=== PATIENT | male | born 1980 | race African-American/Black ===

== ENCOUNTER 2020-03-10 08:32 | Emergency (ER) | payer SELFPAY ==
[~2020-03-10] VITALS: Ht 182.9 cm; Wt 91.9 kg
[2020-03-10 08:57] VITALS: BP 154/71
[2020-03-10] MEDS ORDERED: FAMOTIDINE 20 MG TABLET. PO ONE (09:45)
[2020-03-10] MEDS ORDERED: DEXAMETHASONE SOD PHOS 20 MG/5 ML VIAL. IM ONE (09:45)
[2020-03-10] MEDS ORDERED: diphenhydrAMINE HCL 25 MG CAPSULE PO ONE (09:45)
[2020-03-10] MEDS ORDERED: PRED-220 PO (10:01)
[2020-03-10] MEDS ORDERED: DIPH25CA58 PO (10:01)
[2020-03-10] MEDS ORDERED: FAMO-63 PO (10:01)
--- NOTE | 2020-03-10 10:02 | PHYS DOC ---
Past Medical History Past Medical History: No Pertinent History Past Surgical History: No Surgical History Smoking Status: Current Every Day Smoker Alcohol Use: Occasionally General Adult EDM: Chief Complaint: SKIN RASH/ABSCESS HPI: HPI: Patient is a 39-year-old previously healthy male who presents to the emergency room complaining of diffuse hives. 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 Is been ongoing for the last week but got progressively worse last night. She denies any shortness of breath, nausea, vomiting, swelling. He has never had anything like this previously. He denies any other new exposures. He has not taken anything for his rash. He states it is very itchy. Review of Systems: Review of Systems: General: Denies fever, chills, sweats, fatigue Eyes: Denies drainage, blurred vision, eye redness HENT: Denies rhinorrhea, sore throat, earache Respiratory: Denies cough, shortness of breath, wheezing Cardiac: Denies edema, palpitations, chest pain GI: Denies abdominal pain, Nausea, vomiting MSK: Denies back pain, neck pain Skin: Reports hives, itching Neuro: Denies headache, dizziness Psychiatric: Denies SI/HI Heart Score: Risk Factors: Risk Factors: DM, Current or recent (<one month) smoker, HTN, HLP, family history of CAD, obesity. Risk Scores: Score 0 - 3: 2.5% MACE over next 6 weeks - Discharge Home Score 4 - 6: 20.3% MACE over next 6 weeks - Admit for Clinical Observation Score 7 - 10: 72.7% MACE over next 6 weeks - Early Invasive Strategies Current Medications: Current Medications Medications (Trade) Dose Ordered Sig/Lee Start Time Stop Time Status Last Admin Dose Admin Dexamethasone Sodium Phosphate (Decadron) 10 mg 1X ONCE 03/10/20 09:45 03/10/20 09:46 DC 03/10/20 09:32 10 MG Diphenhydramine HCl (Benadryl) 50 mg 1X ONCE 03/10/20 09:45 03/10/20 09:46 DC 03/10/20 09:32 50 MG Famotidine (Pepcid) 20 mg 1X ONCE 03/10/20 09:45 03/10/20 09:46 DC 03/10/20 09:32 20 MG Allergies: Allergies: Allergies Coded Allergies Type Severity Reaction Last Updated Verified No Known Drug Allergies 03/10/20 No Physical Exam: PE: General: Awake, alert, NAD. Well Nourished, well hydrated. Cooperative HEENT: Atraumatic, EOMI, PERRL, airway patent, moist oral mucosa Neck: Supple, trachea midline Respiratory: CTA bilaterally, normal effort, no wheezing/crackles CV: RRR, no murmur, cap refill <2 GI: Soft, nondistended, nontender, no masses MSK: No obvious deformities Skin: Warm, dry, diffuse hives with excoriation manzanares Neuro: A&O x3, speech NL, sensory and motor grossly intact, no focal deficits Psych: Normal affect, normal mood, not suicidal or homicidal Current Patient Data: Vital Signs: Vital Signs Date Time Temp Pulse Resp B/P (MAP) Pulse Ox O2 Delivery O2 Flow Rate FiO2 03/10/20 08:57 99.8 101 16 154/71 (98) 16 Room Air 99.8 EKG: EKG: [] Radiology/Procedures: Radiology/Procedures: [] Course & Med Decision Making: Course & Med Decision Making Pertinent Labs and Imaging studies reviewed. (See chart for details) Patient is 39-year-old male who presents to the emergency room with diffuse hives. I have discussed with him that the most important thing is eliminating the exposure. We will give him steroids, Pepcid, Benadryl. We will place him on these medications at home. He improved while in the emergency room. He does not have any shortness of breath, swelling, or other signs of anaphylaxis. Patient's test results and vitals while in the ED were fully reviewed and discussed with the patient. Patient is stable and at this time does not need admission to the hospital. We have discussed strict return precautions and the importance of following up with their Primary Care Physician. Patient stated understanding and was given an opportunity to ask any questions. Patient is in agreement with plan. Charlette Disclaimer: Charlette Disclaimer: This electronic medical record was generated, in whole or in part, using a voice recognition dictation system. Departure Departure Impression: Primary Impression: Hives Disposition: 01 DC HOME SELF CARE/HOMELESS Condition: STABLE Referrals: NO PCP (PCP) Patient Instructions: Hives, [id number] Scripts Diphenhydramine Hcl (BENADRYL) 25 Mg Capsule 25 MG PO Q6HRS PRN for ITCHING for 5 Days, #20 CAP Prov: JIAN DIANA MD 03/10/20 Famotidine (PEPCID) 20 Mg Tablet 20 MG PO BID, #14 TAB Prov: JIAN DIANA MD 03/10/20 Prednisone (PREDNISONE ) 10 Mg Tablet 10 MG PO UD, #35 TAB 0 Refills Take 5 tablets by mouth daily for 3 days, then take 4 tablets by mouth daily for 2 days, then take 3 tablets by mouth daily for 2 days, then take 2 tablets by mouth daily for 2 days, then take 1 tablets by mouth daily for 2 days, then stop. Prov: JIAN DIANA MD 03/10/20 JIAN DIANA MD Mar 10, 2020 10:02
== END 2020-03-10 10:19 | disposition home or self-care (01) ==
LOC: ER 08:32
DX: L50.9 Urticaria, unspecified (principal); L29.9 Pruritus, unspecified; F17.200 Nicotine dependence, unspecified, uncomplicated
CPT/HCPCS: 96372; 99283; J1100; Q0163